=== PATIENT | male | born 1990 | race Caucasian/White ===

== ENCOUNTER → 2021-03-26 09:53 | Outpatient (BNVA) | payer BC, SELFPAY | PROVIDERS: Visit Provider Orthopaedic Surgery ==

== ENCOUNTER 2021-06-17 07:00 | Outpatient (RCR) | payer BC, SELFPAY ==
--- NOTE | 2021-03-31 15:09 | MHC.PT.EP ---
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 Pt REPORTS R SHLDER DISLOCATION 6 YRS AGO. NO PT. PRESENTS WITH DECREASED END RANGE R SHLDER ABD AND ER AND DECREASED R SHLDER MM STRENGTH. SHOULD BENEFIT FROM PT FOR POSTURE WORK, RC/UE STRENGTHENING WITH KT>KIM TAPE FOR ASSIST WHILE STRENGTHENING AND PERF STABILIZATION EXS. REPORTS NO SPECIFIC INJURY TO R KNEE BUT NOTICES PAIN WHEN WBING WITH KNEE IN FLEXED POSTION (STAIRS, HIKING ETC). NOTED TO HAVE SOME PATELLAR ASYMMETRY WITH SOME DECREASED STABILITY WITH SLS WITH PAIN WITH SL SQUAT. SHOULD BENEFIT FROM PT FOR KT>KIM TAPING TO HELP WITH PATFEM SYMMETRY WHILE STRENGTHNING LE Frequency and Duration: The patient will be seen 2>1X/WK X 6 WKS (Pt WITH 35$CO PAY) Short Term Goals: 1. INCREASED AWARENESS POSTURE AND SHLDER CARE 2. INCREASED AWARENESS KNEE CARE 3. I TAPING FOR R SHLDER AND R KNEE (WITH FAM ASSIST FOR SHLDER) Prison Goals: 1. DECREASED PAIN R KNEE AT LEAST 50% WITH ADLS 2. I HEP WITH DC EX PLAN FOR SHLDER AND KNEE 3. INCREASED R SHLDER ROM 10 DEGREES FOR SHLDER ABD AND ER 4. DECREASED R SHLDER PAIN AT LEAST 50% WITH ADLS Treatment Plan: Modalities to reduce pain, spasms and effusion. Manual therapy to restore motion and function. Therapeutic exercise to improve strength and flexibility. Neuromuscular re-education for posture and balance. Therapeutic activities to return to functional activities of daily living. Electronically signed by: CASTRO BELLE PT Please sign and return to therapist. Thank you for your referral.
--- NOTE | 2021-07-14 15:31 | MHC.PT.DC ---
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 PER ASSESSMENT FROM MARLIN ZHAO PT,DPT Pt demonstrates overall positive response to home program since start of care. Anticipating transition to HEP next session. He expresses improving tolerance for ADLS/IADLS, less pain. At times continues to express tightness with hamstring at times. . Pt WAS TO HAVE 1 WK FU BUT THERAPIST OUT. NO FURTHER APPTS SCHEDULED. THIS PT CALLED AND LEFT MS FOR Pt RE DC OF RECORD (CALL IF FURTHER PT NEEDED) Electronically signed by: CASTRO BELLE PT Please sign and return to therapist. Thank you for your referral.
== END 2021-07-15 15:33 | disposition home or self-care (01) ==
LOC: HO.PTWFD 07:00
PROVIDERS: PCP Neuromusculoskeletal Medicine, Sports Medicine; Visit Provider Orthopaedic Surgery
DX: M25.311 Other instability, right shoulder (principal); M22.2X9 Patellofemoral disorders, unspecified knee
CPT/HCPCS: 97110; 97140; 97162; 97535

== ENCOUNTER → 2022-02-03 14:20 | Outpatient (BNVA) | payer OTHER, SELFPAY | PROVIDERS: PCP Neuromusculoskeletal Medicine, Sports Medicine; Visit Provider Orthopaedic Surgery | DX: M25.311 Other instability, right shoulder (principal) ==

== ENCOUNTER 2022-02-24 16:35 | Outpatient (REF) | payer OTHER, SELFPAY ==
--- NOTE | ~2022-02-24 | MR_ITS ---
EXAMINATION: MR CERVICAL SPINE WITHOUT CONTRAST CLINICAL INFORMATION: Neck pain. Bilateral upper extremity pain with symptoms most pronounced on the right. COMPARISON: None TECHNIQUE: MRI of the cervical spine was obtained using routine sequences without contrast. FINDINGS: Cervical vertebral body height and alignment are normal in appearance. Mild endplate discogenic marrow signal changes are present adjacent to the C6-C7 intervertebral discs. Visualized posterior fossa and craniocervical junction are normal in appearance. C2-C3: No central foraminal stenoses. Normal intervertebral discs. C3-C4: Normal. C4-C5: Normal. C5-C6: Minimal central disc protrusion. No significant central or foraminal stenoses. C6-C7: Mild-moderate posterior broad-based disc bulge resulting in mild central stenosis with mild effacement of the ventral thecal sac CSF space. The intraforaminal component of the broad-based disc bulge results in mild (less than 50%) bilateral foraminal stenoses. C7-T1: No central foraminal stenoses. The visualized cervical spinal cord is normal in caliber, contour and signal intensity. MR/MR cervical spine wo con IMPRESSION: *C6-C7 mild/moderate posterior broad-based disc bulge resulting in mild central and mild bilateral foraminal stenoses without associated direct nerve root impingement. *C5-C6 minimal central disc protrusion.
== END 2022-02-24 16:36 | disposition home or self-care (01) ==
LOC: HO.MRI 16:35
PROVIDERS: PCP Neuromusculoskeletal Medicine, Sports Medicine; Visit Provider Orthopaedic Surgery
DX: R29.898 Other symptoms and signs involving the musculoskeletal system (principal)
CPT/HCPCS: 72141

== ENCOUNTER → 2022-04-18 08:05 | Outpatient (BNVA) | payer OTHER, SELFPAY | PROVIDERS: PCP Neuromusculoskeletal Medicine, Sports Medicine; Visit Provider Internal Medicine | DX: Z13.89 Encounter for screening for other disorder (principal) ==

== ENCOUNTER 2022-07-18 07:00 | Outpatient (RCR) | payer OTHER, SELFPAY ==
--- NOTE | 2022-05-05 13:01 | MHC.PT.EP ---
[facility] [place] Office [place] Office [place] Office [address] Catracho Mack [address] [phone] F: [phone] F: [phone] F: [phone] F: [phone] Physical Therapy Plan of Care Date of Evaluation: Date of Surgery: Diagnosis: PT eval and treat: Radiculopathy, cervical region, cervical radiculopathy signed by Dr. Khan signed by 04/18/22. 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 Pt was referred to PT from pain management> had MRI on 02/24/22. Cervical Spine MRI (02/24/22):FINDINGS: Cervical vertebral body height and alignment are normal in appearance. Mild endplate discogenic marrow signal changes are present adjacent to the C6-C7 intervertebral discs. Visualized posterior fossa and craniocervical junction are normal in appearance. C2-C3: No central foraminal stenoses. Normal intervertebral discs. C3-C4: Normal. C4-C5: Normal. C5-C6: Minimal central disc protrusion. No significant central or foraminal stenoses. C6-C7: Mild-moderate posterior broad-based disc bulge resulting in mild central stenosis with mild effacement of the ventral thecal sac CSF space. The intraforaminal component of the broad-based disc bulge results in mild (less than 50%) bilateral foraminal stenoses. C7-T1: No central foraminal stenoses. Pt exhibits decreased tolerance for sitting, sleep postures, and reports near constant tingling radiating R UE along height of elbow and into thumb/pointer finger. Pt expresses since onset he has begun to now notice similar sx in his L UE. Pt would benefit from skilled PT at a frequency of 2x/week x 6 weeks to address impairments, centralize C/S sx, implement HEP, and restore functional mobility tolerance to resume PLOF. Post evaluation pt was trialed with gentle postural therex including scap retraction, chin tucks and, manual C-tx which reduced the intensity and severity of his parathesias in his thumb after a brief 10 minute trial. Pt has attended therapy in the past with good compliance. Pt also reports history of separate medical matter, ongoing lumbar sx with report of radiating sx into the medial hoffman>toe>plantar surface of his R great toe. AROM/strength of the R great toe is diminished compared to the left. He also expresses medial ankle sx consistent with posterior tibial tendonitis (+) too many toes sign bilaterally. Pt is currently lacking a formal exercise program for his neck and would benefit from attending skilled PT services at a frequency of 2x/week x 6 weeks to meet listed goals. Frequency and Duration: The patient will be seen 2x/week x 4 weeks Short Term Goals: 1. Centralize frequency of R UE C5/C6 sx from constant to intermittent in appearance. 2. Reduce neck pain by 25%. 3. Centralize R hand to elbow. 4. Improve NDI by 25%. 5. Educate re: office ergonomic/work station to improve posture/sx. Returned Goods Inspector Goals: 1. Strength R ER 5/5. 2. Strength R bicep 5/5. 3. I HEP with good program. 4. Resume ability to sleep in SL position. 5. Resume exercise/hiking [place] I without presence of radicular symptoms. Treatment Plan: Modalities to reduce pain, spasms and effusion. Manual therapy to restore motion and function. Therapeutic exercise to improve strength and flexibility. Neuromuscular re-education for posture and balance. Therapeutic activities to return to functional activities of daily living. Electronically signed by: Sima Whitten, PT, DPT Please sign and return to therapist. Thank you for your referral.
== END 2023-01-31 11:21 | disposition home or self-care (01) ==
LOC: HO.PTWFD 07:00
PROVIDERS: PCP Neuromusculoskeletal Medicine, Sports Medicine; Visit Provider Internal Medicine
DX: M54.12 Radiculopathy, cervical region (principal)
CPT/HCPCS: 97012; 97110; 97140; 97150; 97162; 97535

== ENCOUNTER 2022-11-11 09:25 | Outpatient (REF) | payer OTHER, SELFPAY ==
--- NOTE | ~2022-11-11 | XR_ITS ---
EXAMINATION: XR PELVIS CLINICAL INFORMATION: Pain unspecified hip COMPARISON: None available. TECHNIQUE: AP view of the pelvis. FINDINGS: No fracture. Hip joint spaces are maintained. Alignment is anatomic. Sacroiliac joints and pubic symphysis are normal. No abnormal soft tissue calcifications. XR/XR pelvis 1-2V IMPRESSION: Normal pelvis.
--- NOTE | ~2022-11-11 | XR_ITS ---
EXAMINATION: AP both knees. 2 views of the right knee. CLINICAL INFORMATION: Pain in the knee COMPARISON: None. TECHNIQUE: AP upright both knees. Patellofemoral and lateral views of the right knee FINDINGS: Right knee: The bones joints and soft tissues are normal. No effusion. Left knee Limited: The medial lateral compartments are normal. Patellofemoral compartment not evaluated. Surrounding bone and soft tissues normal. XR/XR knee RT 2V IMPRESSION: RIGHT KNEE: Normal. LEFT KNEE: Normal.
--- NOTE | ~2022-11-11 | XR_ITS ---
EXAMINATION: AP both knees. 2 views of the right knee. CLINICAL INFORMATION: Pain in the knee COMPARISON: None. TECHNIQUE: AP upright both knees. Patellofemoral and lateral views of the right knee FINDINGS: Right knee: The bones joints and soft tissues are normal. No effusion. Left knee Limited: The medial lateral compartments are normal. Patellofemoral compartment not evaluated. Surrounding bone and soft tissues normal. XR/XR knee standing BI IMPRESSION: RIGHT KNEE: Normal. LEFT KNEE: Normal.
== END 2022-11-11 09:26 | disposition home or self-care (01) ==
LOC: HO.HOSX 09:25
PROVIDERS: PCP Neuromusculoskeletal Medicine, Sports Medicine; Visit Provider Orthopaedic Surgery
DX: Q65.89 Other specified congenital deformities of hip (principal); M25.561 Pain in right knee; M25.562 Pain in left knee
CPT/HCPCS: 72170; 73560; 73565

== ENCOUNTER 2022-11-11 09:25 | Outpatient (AMB) | payer OTHER, SELFPAY ==
--- NOTE | 2022-11-11 09:27 | MHC.OFFVIS ---
Intake Intake Visit Reasons: Newprob-Right leg pain Intake Note: Tarun is a 32 year old male who presents today for a new problem visit with complaints of right leg pain. Patient reports that he is having pain and tightness in the hip knee and ankle. He explains that it is always feeling stiff and it does not seem to loosen up. He has done PT in the past but it only inreased his strenghth. Denies numnbess and tingling. Hx of slipped disc about 3 years ago Allergies Sulfa (Sulfonamide Antibiotics) Allergy (Verified 04/18/22 08:11) Joint Pain Penicillins Adverse Reaction (Verified 04/18/22 08:11) Rash HPI Newprob-Right leg pain HPI Details Tarun is a 32 year old man who presents with complaints of right leg pain. He complains of pain and feelings of tightness/stiffness in the joints of his right leg, from his hip to his knee and ankle. He says he does not feel pain in his hip per se but he can feel it is tight, most of his pain is in his knee and ankle. He does feel a pulling tight sensation into his hip, and has groin pain with prolonged activity. He says this has been present for several years and has not improved with PT or at-home exercise. He is not limited in his daily activities, still able to run or hike, but he is concerned if he continues to push through activities while he is tight that he may blow his knee out . He has a hx of a herniated lumbar disc ~3 years ago. He denies any numbness, tingling, or burning. He follows with Pain Management for Cervical Radiculopathy, which he says is going very well. [facility] Social History (Updated 11/11/22 @ 09:30 by Lynda Zuniga [facility]) Patient Tobacco Use Status: Never used Tobacco Current occupational status: employed Current occupation: [employer]er Review of Systems Const All systems reviewed & are unremarkable except as noted in HPI and below Physical Exam Const General: no acute distress, alert and awake Orientation/consciousness: patient oriented x3 HEENT Head: Yes normocephalic and Yes atraumatic Eyes EOM: EOMs intact bilaterally Resp Effort & Inspection: normal respiratory effort and able to speak in complete sentences Cardio Jugular venous distension: no JVD Skin General skin exam: turgor normal Rashes: no rashes Neuro General: patient oriented x3 Extrem Other: Right hip: + impingement test right hip Full ROM bilateral hips Psych Appearance: grossly normal Affect: normal affect Attitude: cooperative Results Reviewed Results Reviewed: I personally reviewed relevant radiographs. Nl xrays Assessment & Plan Assessment & Plan (1) Hip dysplasia: Code(s): Q65.89 - Other specified congenital deformities of hip Plan: This is a 32 year old man with right hip pain.. He has pain and tightness with daily activity, with no relief from PT or at-home exercise. His pain is localized to his groin and radiates down into his knee, worse with prolonged activities. He is not limited in his ADLs at this time and is able to engage in daily activities without difficulty. I discussed his diagnosis and treatment options. I ordered an MRI of his hips and recommend he focus on hip stabilization and core strengthening exercises. He will follow up for an MRI review when completed. Plan Scribed for Swapnil Moore MD by Avery Kingston, medical record specialist, on 11/11/22 at 10:30 AM, EST. Orders: Orders XR pelvis 1-2V 11/11/22 M25.559 - Pain in unspecified hip XR knee RT 2V 11/11/22 M25.569 - Pain in unspecified knee MR hip RT wo con 11/11/22 Q65.89 - Other specified congenital deformities of hip XR knee standing BI 11/11/22 M25.569 - Pain in unspecified knee FL arthrogram hip RT 11/11/22 Q65.89 - Other specified congenital deformities of hip Coding Level of Care Code Est Pt Level 4 (08071) Diagnoses Hip dysplasia Q65.89
== END 2022-11-11 11:02 | disposition home or self-care (01) ==
PROVIDERS: PCP Neuromusculoskeletal Medicine, Sports Medicine; Visit Provider Orthopaedic Surgery
DX: Q65.89 Other specified congenital deformities of hip (principal)
CPT/HCPCS: 99214

== ENCOUNTER 2022-12-30 13:15 | Outpatient (REF) | payer OTHER, SELFPAY ==
--- NOTE | ~2022-12-30 | MR_ITS ---
EXAMINATION: MR HIP WITH CONTRAST, RIGHT CLINICAL INFORMATION: Right hip pain COMPARISON: Radiographs 11/11/2022 TECHNIQUE: MRI of the right hip was performed after the intra-articular administration of a dilute gadolinium-containing solution on a high-field scanner. FINDINGS: No definite labral tear. No focal articular cartilage defect or loose body. Measured in the axial plane, the alpha angle is within normal limits, approximately 50 degrees. There is a small bony protuberance along the anterior femoral neck. Mild trochanteric bursitis. No acute muscle strain or tear. MR/MR hip RT w con IMPRESSION: 1. No definite labral tear. 2. Mild trochanteric bursitis.
--- NOTE | ~2022-12-30 | FL_ITS ---
RIGHT HIP ARTHROGRAM INDICATIONS: Right hip pain. Intra-articular gadolinium injection is needed prior to MRI. PROCEDURE: Risks and benefits and possible complications were discussed with the patient and the consent form was signed. The patient was placed supine on the fluoroscopy table. The right hip was prepped and draped in normal sterile fashion. 1% buffered lidocaine was used for anesthesia. A 22-gauge spinal needle was used to access the hip joint. Intra-articular position of the needle within the hip joint was verified using 3 cc of Omnipaque 300, mixed with a small amount of 1% lidocaine. A total of 12 mL of gadolinium/saline (1:200) contrast mixture was then injected into the hip joint. The needle was then removed and a Band-Aid was applied to the injection site. The patient tolerated the procedure well and was sent for to MRI. There were no immediate complications. FL/FL arthrogram hip RT IMPRESSION: Fluoroscopic right hip arthrogram The procedure was performed by Branden Norton PA-C, and directly supervised by Dr. Nobles.
[2022-12-30] MEDS: gadobutroL 2 ML VIAL IVPUSH (16:05)
== END 2022-12-30 13:16 | disposition home or self-care (01) ==
LOC: HO.XRAY 13:15
PROVIDERS: PCP Neuromusculoskeletal Medicine, Sports Medicine; Visit Provider Orthopaedic Surgery
DX: Q65.89 Other specified congenital deformities of hip (principal)
CPT/HCPCS: 27093; 73525; 73722; A9585

== ENCOUNTER → 2022-12-30 13:21 | Outpatient (BNV) | payer OTHER, SELFPAY | PROVIDERS: PCP Neuromusculoskeletal Medicine, Sports Medicine; Visit Provider Radiology Diagnostic Radiology | DX: M25.551 Pain in right hip (principal) | CPT/HCPCS: 27093; 73525 ==

== ENCOUNTER 2023-01-16 09:38 | Outpatient (AMB) | payer OTHER, SELFPAY ==
--- NOTE | 2023-01-16 09:39 | MHC.OFFVIS ---
Intake Intake Visit Reasons: TELE - MRI Review Intake Note: Tarun is a 32 year old male who presents today for a telehealth appt MRI review the MRI. Results were pretty unremarkableHe states he feels. Pain is posterior. No groin pain. Allergies Sulfa (Sulfonamide Antibiotics) Allergy (Verified 04/18/22 08:11) Joint Pain Penicillins Adverse Reaction (Verified 04/18/22 08:11) Rash HPI TELE - MRI Review HPI Details Tarun is a 32 year old man, presenting via telehealth, for an MRI review of his right hip & leg pain. He is also S/P right hip arthrogram on 12/30/22. He did not feel any benefit from the hip injection. He has been working on strengthening exercises at home. He continues to feel a tightness/stiffness in the joints of his right leg, from his hip to his knee and ankle. He does feel a pulling tight sensation into his hip, and has groin pain with prolonged activity. He has a hx of a herniated lumbar disc in ~2019. He denies any numbness, tingling, or burning. He follows with Pain Management for Cervical Radiculopathy, which he says is going very well. 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 FINDINGS: No definite labral tear. No focal articular cartilage defect or loose body. Measured in the axial plane, the alpha angle is within normal limits, approximately 50 degrees. There is a small bony protuberance along the anterior femoral neck. Mild trochanteric bursitis. No acute muscle strain or tear. IMPRESSION: 1. No definite labral tear. 2. Mild trochanteric bursitis. Assessment & Plan Assessment & Plan (1) Lumbar radiculitis: Code(s): M54.16 - Radiculopathy, lumbar region Plan: No evidence of hip pathology. Will contact me if symptoms worsen Plan Scribed for Swapnil Moore MD by Avery Kingston, medical office scheduler, on 01/16/23 at 9:50 AM, EST. Coding Level of Care Code Tele New Pt Level 2 (68540) Diagnoses Lumbar radiculitis M54.16
== END 2023-01-16 11:20 | disposition home or self-care (01) ==
LOC: HO.HOS 09:38
PROVIDERS: PCP Neuromusculoskeletal Medicine, Sports Medicine; Visit Provider Orthopaedic Surgery
DX: M54.16 Radiculopathy, lumbar region (principal)
CPT/HCPCS: 99441

== ENCOUNTER → 2023-01-16 09:38 | Outpatient (BNVA) | payer OTHER, SELFPAY | PROVIDERS: PCP Neuromusculoskeletal Medicine, Sports Medicine; Visit Provider Orthopaedic Surgery ==

== ENCOUNTER 2023-06-22 07:00 | Outpatient (RCR) | payer BC, SELFPAY | END 2023-08-07 08:22 | disposition home or self-care (01) | LOC: HO.PTWFD 07:00 | PROVIDERS: PCP Neuromusculoskeletal Medicine, Sports Medicine; Visit Provider Neuromusculoskeletal Medicine, Sports Medicine | DX: S39.012D Strain of muscle, fascia and tendon of lower back, subsequent encounter (principal) | CPT/HCPCS: 97012; 97110; 97116; 97161; 97535 ==